=== PATIENT | female | born 2000 | race African-American/Black ===

== ENCOUNTER 2020-12-19 13:51 | Emergency (ER) | payer SELFPAY ==
[~2020-12-19] VITALS: Ht 152.4 cm; Wt 79.0 kg
[2020-12-19 13:57] VITALS: BP 130/82
[2020-12-19 15:23] LABS: CLARITY URINE CLOUDY (CLEAR); COLOR URINE YELLOW (YELLOW); KETONES URINE TRACE (NEGATIVE); LEUKOCYTE ESTERASE URINE 2+ (NEGATIVE); NITRITE URINE NEGATIVE (NEGATIVE); OCCULT BLOOD URINE NEGATIVE (NEGATIVE); PROTEIN URINE NEGATIVE (NEGATIVE); SPECIFIC GRAVITY URINE 1.031 (1.005-1.030); UROBILINOGEN URINE 0.2 E.U./dL (0.2-1.0)
[2020-12-19 15:36] LABS: HCG SCREEN NEGATIVE
[2020-12-19] MEDS ORDERED: METR70GE17 VG (17:03)
[2020-12-19] MEDS ORDERED: NITR100C MT (17:03)
[2020-12-19] MEDS ORDERED: DIF15 MT (17:13)
[2020-12-22 04:07] LABS: NEISSERIA GONORRHOEAE NAA Negative (Negative)
== END 2020-12-19 17:18 | disposition home or self-care (01) ==
LOC: ER 13:51
DX: N39.0 Urinary tract infection, site not specified (principal); N76.0 Acute vaginitis; L30.9 Dermatitis, unspecified
CPT/HCPCS: 81003; 81025; 84703; 87210; 87491; 87591; 99283